=== PATIENT | female | born 1955 | race Caucasian/White ===

== ENCOUNTER → 2018-07-20 | Outpatient (CLI) | payer OTHER ==
[2016-04-11 15:40] VITALS: BP 156/61
[~2018-07-20] MED LIST: ASPI-630 PO; ATOR10TA60 PO; LISI2.5T PO; MECL-57 PO
--- NOTE | 2018-07-20 11:10 | RAD ---
DATE: 07/20/2018 EXAM: MAMMO TIANA DIAG BILAT HISTORY: Right lateral breast pain COMPARISON: 02/17/2013 This study was interpreted with the benefit of Computerized Aided Detection (CAD). Breast Density: SCATTERED The breast parenchyma shows scattered fibroglandular densities. Breast parenchyma level B. FINDINGS: 2-D and 3-D tomosynthesis imaging was performed in CC and MLO projections. There is a 6-7 mm nodule in the lateral aspect of left breast which is unchanged since the previous exam. This suggests a benign etiology. No new or enlarging breast densities are seen. Benign type calcifications are present in both breasts. No suspicious microcalcifications have developed. IMPRESSION: Stable mammograms without evidence of malignancy. BI-RADS CATEGORY: 2 BENIGN FINDING(S) RECOMMENDED FOLLOW-UP: 12M 12 MONTH FOLLOW-UP PQRS compliance statement: Patient information was entered into a reminder system with a target due date for the next mammogram. Mammography is a sensitive method for finding small breast cancers, but it does not detect them all and is not a substitute for careful clinical examination. A negative mammogram does not negate a clinically suspicious finding and should not result in delay in biopsying a clinically suspicious abnormality. "Our facility is accredited by the [employer] Mammography Program."
== END | disposition home or self-care (01) ==
LOC: MAMMO 09:27
PROVIDERS: ATTEND Family Medicine
DX: N64.4 Mastodynia (principal); R92.1 Mammographic calcification found on diagnostic imaging of breast
CPT/HCPCS: 77066; G0279; 77062